=== PATIENT | male | born 1970 | race Caucasian/White ===

== ENCOUNTER 2017-05-23 09:24 | Emergency (ER) | payer SELFPAY ==
[~2017-05-23] VITALS: Ht 172.7 cm; Wt 63.6 kg
[2017-05-23 09:37] VITALS: Ht 172.7 cm; Wt 63.6 kg
[2017-05-23] MEDS ORDERED: ACETAMINOPHEN 500 MG TAB PO STA (09:40)
--- NOTE | 2017-05-23 10:11 | RADRPT ---
PROCEDURE: XR Chest. CLINICAL INDICATION: chest pain TECHNIQUE: Single frontal view of the chest was obtained COMPARISON: None FINDINGS: The heart and mediastinum are within normal limits. The lungs are clear. There is no pleural effusion or pneumothorax. RPTAT: AA IMPRESSION: No acute disease. .Drew Leger MD, Date Time Electronically viewed and signed by .Drew Leger MD, on 05/23/2017 10:11 .S/
--- NOTE | 2017-05-23 10:12 | RADRPT ---
AMENDMENT: 05/23/2017 10:13:11 AM Drew Leger M.D TECHNIQUE: AP, lateral, and odontoid views of the cervical spine were performed. The images were r eviewed on a PACS workstation. PROCEDURE: XR Cervical Spine. CLINICAL INDICATION: neck pain TECHNIQUE: AP, lateral, oblique and odontoid views of the cervical spine were performed. The image s were reviewed on a PACS workstation. COMPARISON: None. FINDINGS: The vertebral body alignment, height and osseous mineralization are normal. There are moderate degenerative changes involving the C4-C7 intervertebral disk level. There is dis c space narrowing, endspace sclerosis and osteophytes. The prevertebral soft tissues are normal. No radiopaque foreign bodies are identified. There is no acute fracture or subluxation. RPTAT: AA IMPRESSION: Moderate degenerative changes of the cervical spine, more pronounced at C4-C7. .Drew Leger MD, MD Date Time Electronically viewed and signed by .Drew Leger MD, MD on 05/23/2017 10:13 .S/
[2017-05-23] MEDS ORDERED: IBUP-1542 PO (10:58)
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
[2017-05-23] MEDS ORDERED: DIPHTH/TET/ACEL PERTUSS (ADULT) 0.5 ML VIAL IM* ONE (11:30)
== END 2017-05-23 11:05 | disposition left against medical advice (07) ==
LOC: FTE 09:24
DX: S60.812A Abrasion of left wrist, initial encounter (principal); S29.9XXA Unspecified injury of thorax, initial encounter; V49.40XA Driver injured in collision with unspecified motor vehicles in traffic accident, initial encounter
CPT/HCPCS: 71010; 72040; 93005